=== PATIENT | female | born 1970 | race Caucasian/White ===

== ENCOUNTER 2019-12-25 | Emergency (ER) | payer BC ==
[2019-12-25] MEDS ORDERED: ZOLOFT50 MG PO (13:57)
[2019-12-25] MEDS ORDERED: BACTROBAN TOP (14:52)
== END 2019-12-25 15:00 | disposition home or self-care (01) | DRG 605 ==
DX: S80.211A Abrasion, right knee, initial encounter (principal); M77.32 Calcaneal spur, left foot; W16.42XA Fall into unspecified water causing other injury, initial encounter; Y93.11 Activity, swimming; Y92.828 Other wilderness area as the place of occurrence of the external cause